=== PATIENT | female | born 1955 | race Caucasian/White ===

== ENCOUNTER → 2023-06-17 08:05 | Outpatient (BNVA) | payer MEDICARE, SELFPAY | PROVIDERS: Family Provider Internal Medicine; PCP Internal Medicine; Referring Provider Family Medicine; Visit Provider Psychiatry & Neurology Neurology | DX: G40.909 Epilepsy, unspecified, not intractable, without status epilepticus (principal) | CPT/HCPCS: 99203 ==

== ENCOUNTER 2023-07-04 10:38 | Outpatient (CLI) | payer MEDICARE, SELFPAY ==
--- NOTE | 2023-07-04 11:00 | CT_ITS ---
WS: [id number] CT HEAD TECHNIQUE: Noncontrast CT of the head obtained from the skullbase to the vertex. CLINICAL INFORMATION: G40.909 - Epilepsy, unspecified, not intractable, without... COMPARISON: MRI 2009 DLP: 1079.[address] scans at [facility] use at least one of these dose optimization techniques: automated e xposure control; mA and/or kV adjustment per patient size (includes targeted exams where dose is matc hed to clinical indication); or iterative reconstruction. FINDINGS: No evidence of intracranial hemorrhage or mass effect. Ventricular system and basal cisterns are sandhu nt. Mild small vessel changes with mild parenchymal volume loss worse in the frontal lobes. No extra- axial fluid collections. No evidence of mass or mass effect. Intracranial vascular calcification. Mastoid air cells are well aerated. Small amount of fluid in the sphenoid sinus compatible with sphen oid sinusitis. IMPRESSION: 1. No evidence of intracranial hemorrhage or mass effect. 2. Mild small vessel changes. Mild parenchymal volume loss worse in the frontal lobes. This is prog ressed compared to 2010. 3. Mild sphenoid sinusitis. 4. No acute intracranial findings.
== END 2023-07-04 10:39 | disposition home or self-care (01) ==
LOC: RAD 10:38
PROVIDERS: Family Provider Internal Medicine; PCP Internal Medicine; Visit Provider Psychiatry & Neurology Neurology
DX: G40.909 Epilepsy, unspecified, not intractable, without status epilepticus (principal); J32.3 Chronic sphenoidal sinusitis
CPT/HCPCS: 70450

== ENCOUNTER → 2023-08-15 09:12 | Outpatient (BNVA) | payer MEDICARE, SELFPAY | PROVIDERS: Family Provider Internal Medicine; PCP Internal Medicine; Visit Provider Psychiatry & Neurology Neurology | DX: R56.9 Unspecified convulsions (principal) | CPT/HCPCS: 95813 ==

== ENCOUNTER 2023-09-10 15:41 | Outpatient (CLI) | payer MEDICARE, SELFPAY ==
--- NOTE | 2023-09-10 16:15 | USCV_ITS ---
Mohini Hannah Age: 67 Gender: F : 1955 Exam Date: 09/10/2023 16:32 Ordering Phys: Herbie Olivas MD Technologist: Maddy Hart [place] [facility] [place] Syncope with collapse Risk Factors: Unknown Previous Vascular Surgery: None Right Brachial BP: / Left Brachial BP: / Right Left Velocity (cm/s) Spectral Plaque Velocity (cm/s) Spectral Plaque Syst/Diast Broadening Syst/Diast Broadening 81.60/ 26.50 Prox CCA 93.30 / 30.20 89.30/ 30.90 Mid CCA 76.20 / 30.20 103.60/36.40 Hetro Distal CCA 71.00 / 27.60 Hetro 170.90/59.40 Hetro Prox ICA 83.00 / 33.90 Hetro 197.90/61.20 Hetro Mid ICA 95.00 / 36.00 Hetro 140.30/48.60 Distal ICA 86.30 / 32.80 115.80 Hetro ECA 88.50 Hetro 2.22 ICA/CCA 1.25 Antegrade Vertebral Antegrade 66.60/ 30.60 cm/s 63.30/ 24.00 cm/s Bi Subclavian Tri 99.90 118.0 0 CONCLUSIONS Right ICA stenosis 50-69%. Moderate calcified atheromatous plaque right carotid bulb/ICA. Left ICA stenosis <50%. Mild atheromatous plaque left carotid bulb/ICA. Intimal thickening in the common carotid arteries and internal carotid arteries bilaterally. Normal antegrade Doppler flow noted in the right vertebral artery. Normal antegrade Doppler flow noted in the left vertebral artery. Lee Chiu MD (Electronically Signed) Final Date: 11 September 2023 09:45 S
== END 2023-09-10 15:42 | disposition home or self-care (01) ==
LOC: RAD 15:41
PROVIDERS: Family Provider Internal Medicine; PCP Internal Medicine; Visit Provider Psychiatry & Neurology Neurology
DX: R55 Syncope and collapse (principal); I65.23 Occlusion and stenosis of bilateral carotid arteries
CPT/HCPCS: 93880